=== PATIENT | male | born 1950 | race American Indian/Alaskan Native ===

== ENCOUNTER 2022-02-27 18:40 | Emergency (ER) | payer OTHER ==
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
[2022-02-28] MEDS ORDERED: ACETAMINOPHEN W/CODEINE 300-30 MG TAB PO ONE (03:41)
[2022-02-28] MEDS ORDERED: predniSONE 20 MG TAB PO ONE (03:41)
[2022-02-28] MEDS ORDERED: CYCLOBENZAPRINE 10 MG TAB PO ONE (03:42)
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
[2022-02-28 05:03] VITALS: BP 189/78
== END 2022-02-28 05:03 | disposition home or self-care (01) ==
LOC: ED 18:40
DX: R07.89 Other chest pain (principal); M54.2 Cervicalgia; I10 Essential (primary) hypertension; Z79.899 Other long term (current) drug therapy; V87.7XXA Person injured in collision between other specified motor vehicles (traffic), initial encounter; Y93.89 Activity, other specified; Y92.488 Other paved roadways as the place of occurrence of the external cause; Y99.8 Other external cause status
CPT/HCPCS: 71046; 93005; 99283